=== PATIENT | female | born 1985 | race Caucasian/White ===

== ENCOUNTER 2018-09-20 08:54 | Emergency (ER) | payer OTHER ==
[~2018-09-20] VITALS: Ht 182.9 cm; Wt 134.7 kg
--- NOTE | 2018-09-20 09:00 | NUR ---
PT [id number] FRM [facility] C/O MIDSTERNAL CHEST PAIN FOR THE PAST 8 HOURS, PT IS AAOX4,NOT IN RESPIRATORY DISTRESS, V/S STABLE, KEPT RESTED AND COMFORTABLE, WILL CONTINUE TO MONITOR.
--- NOTE | 2018-09-20 09:05 | NUR ---
AT BEDSIDE FOR EVAL.
--- NOTE | 2018-09-20 09:20 | NUR ---
BLOOD DRAWNED AND SENT TO LAB.
--- NOTE | 2018-09-20 09:24 | NUR ---
URINE SPECIMEN COLLECTED AND SENT TO LAB.
[2018-09-20 09:26] LABS: BASOPHILS # (AUTO) 0.1 /CMM (0.0-0.2); BASOPHILS % (AUTO) 0.7 % (0.0-2.0); EOSINOPHILS % (AUTO) 0.7 % (0.0-6.0); HEMATOCRIT 37 % (33-45); HEMOGLOBIN 12.2 g/dL (11.5-14.8); LYMPHOCYTES # (AUTO) 0.9 /CMM (0.8-4.8); LYMPHOCYTES % (AUTO) 9.7 % (20.0-44.0); MEAN CORPUSCULAR HGB CONC 33 g/dl (31.0-36.0); MEAN CORPUSCULAR VOLUME 89 fL (82-100); MONOCYTES # (AUTO) 0.4 /CMM (0.1-1.30); MONOCYTES % (AUTO) 4.2 % (2.0-12.0); NEUTROPHILS # (AUTO) 7.6 /CMM (1.8-8.9); NEUTROPHILS % (AUTO) 84.7 % (43.0-81.0); PLATELET COUNT (AUTO) 331 /CMM (150-450); RED BLOOD CELL COUNT(AUTO) 4.12 MIL/uL (4.0-5.2)
[2018-09-20 09:35] LABS: CALCIUM, SERUM 9.2 mg/dL (8.5-10.1); CARBON DIOXIDE 30 mmol/L (21-32); CHLORIDE 104 mmol/L (98-107); CREATININE 0.8 mg/dL (0.6-1.3); GLUCOSE 114 mg/dL (74-106); POTASSIUM 4.3 mmol/L (3.5-5.1); SODIUM SERUM 140 mmol/L (136-145); UREA NITROGEN, BLOOD 10 mg/dL (7-18)
[2018-09-20 09:40] LABS: ALANINE AMINOTRANSFERASE 40 U/L (12-78); ALBUMIN 3.5 g/dL (3.4-5.0); ALKALINE PHOSPHATASE 87 U/L (46-116); ASPARTATE AMINOTRANSFERASE 23 U/L (15-37); BILIRUBIN,DIRECT 0.1 mg/dL (0.0-0.2); BILIRUBIN,TOTAL 0.3 mg/dL (0.2-1.0); TOTAL PROTEIN, SERUM 7.5 g/dL (6.4-8.2)
[2018-09-20] MEDS ORDERED: ACETAMINOPHEN ES 500 MG TABLET ONE (09:53)
[2018-09-20] MEDS ORDERED: ONDANSETRON HCL/PF 4 MG/2 ML VIAL ONE (09:53)
[2018-09-20 09:55] LABS: D-DIMER 0.23 mg/L(FEU (0.17-0.50)
[2018-09-20] MEDS ORDERED: ONDANSETRON HCL/PF 4 MG/2 ML VIAL IVP ONE (10:30)
[2018-09-20] MEDS ORDERED: ACETAMINOPHEN ES 500 MG TABLET PO ONE (10:30)
--- NOTE | 2018-09-20 10:48 | NUR ---
TECH AT BEDSIDE FOR US.
--- NOTE | 2018-09-20 11:52 | NUR ---
IV removed. Catheter intact and site benign. Pressure and 4x4 applied to site. No bleeding noted. Patient discharged to home in stable condition. Written and verbal after care instructions given. Patient verbalizes understanding of instruction.
[2018-09-20 11:53] VITALS: BP 117/52
== END 2018-09-20 11:54 | disposition home or self-care (01) ==
LOC: ER 08:54
DX: R07.89 Other chest pain (principal); R60.0 Localized edema; F32.9 Major depressive disorder, single episode, unspecified; F43.10 Post-traumatic stress disorder, unspecified; Z88.8 Allergy status to other drugs, medicaments and biological substances; Z86.718 Personal history of other venous thrombosis and embolism; Z88.6 Allergy status to analgesic agent; Z79.01 Long term (current) use of anticoagulants
CPT/HCPCS: 36415; 71045; 80048; 80076; 84484; 84703; 85025; 85378; 85730; 93005; 93970; 96374; 99284; J2405